=== PATIENT | male | born 1950 | race Two or more races ===

== ENCOUNTER 2022-11-26 11:22 | Inpatient (IN) | payer OTHER, MEDICAID ==
[~2022-11-26] VITALS: Ht 162.6 cm; Wt 57.1 kg
[2022-11-26] MEDS ORDERED: SODIUM CHLORIDE 0.9% 1,000 ML IV ONE (11:30)
[2022-11-26 11:54] LABS: Basophils # (auto) 0 10 ^3/uL (0-0.2); Basophils % (auto) 0.5 % (0.0-2.0); Eosinophils # (auto) 0.1 10 ^3/uL (0-0.8); Eosinophils % (auto) 2.1 % (0.0-7.0); Hematocrit 33.4 % (41.0-53.0); Hemoglobin 11.1 g/dL (13.5-17.5); Lymphocytes # (auto) 2.3 10 ^3/uL (0.4-5.4); Lymphocytes % (auto) 36.1 % (10.0-50.0); Mean Corpuscular Hemoglobin 29.8 pg (28.0-32.0); Mean Corpuscular Hgb Conc. 33.1 g/dL (32.0-36.0); Mean Corpuscular Volume 89.8 fL (80.0-100.0); Monocytes # (auto) 0.3 10 ^3/uL (0-1.3); Monocytes % (auto) 4.8 % (0.0-12.0); Neutrophils # (auto) 3.6 10 ^3/uL (1.6-8.6); Neutrophils % (auto) 56.5 % (37.0-80.0); Nucleated Red Blood Cells % 0.1 %; Red Blood Cells 3.72 10^6/uL (4.5-5.90); Red Cell Distribution Width 13.9 % (11.8-14.3); White Blood Cell 6.3 10^3/uL (4.4-10.8)
[2022-11-26 12:14] LABS: Albumin 3.5 g/dL (3.4-5.0); Calcium 8.3 mg/dL (8.5-10.1)
[2022-11-26 12:16] LABS: BUN/Creatinine Ratio 17.7 (10.0-20.0); Bilirubin, Total 0.4 mg/dL (0.2-1.0); Total Protein 5.8 g/dL (6.4-8.2)
[2022-11-26] MEDS ORDERED: MORPHINE SULFATE INJ 2 MG/ml SYRG IV PRN (14:45)
[2022-11-26] MEDS ORDERED: NITROGLYCERIN 0.4 MG SL TAB SL PRN (14:45)
[2022-11-26] MEDS ORDERED: NAP500T PO (16:01)
[2022-11-26] MEDS ORDERED: ATOR10TA52 PO (16:01)
[2022-11-26] MEDS ORDERED: BACL10TA PO (16:01)
[2022-11-26] MEDS ORDERED: FEXO-157 PO (16:01)
[2022-11-26] MEDS ORDERED: HYDR-3682 PO (16:01)
[2022-11-26] MEDS ORDERED: hydrOXYzine 25 MG TAB or CAP PO PRN (16:30)
[2022-11-26 16:53] LABS: Alcohol, Urine < 3.0 mg/dL (0-10); Barbiturate Scree,Urine NEGATIVE (NEGATIVE); Benzodiazephine Screen, Urine NEGATIVE (NEGATIVE); Cocaine Screen, Urine NEGATIVE (NEGATIVE); Opiate Scree,Urine NEGATIVE (NEGATIVE)
[2022-11-26 17:01] LABS: Amphetamine Screen, Urine NEGATIVE (NEGATIVE); Cannabinoid Screen, Urine POSITIVE (NEGATIVE); Phencyclidine Screen, Urine NEGATIVE (NEGATIVE)
[2022-11-26 17:04] LABS: Urine Bacteria NONE SEEN /hpf (None Seen); Urine Blood Negative /uL (Negative); Urine Clarity Clear (Clear); Urine Color Colorless (Yellow); Urine Protein, UAD Negative (Negative); Urine Urobilinogen Normal (Negative); Urine WBC 2 /hpf (0 - 3)
[2022-11-26] MEDS: NAPROXEN 500 MG TAB PO SCH (21:22)
[2022-11-26 22:10] VITALS: O2SAT 98
[2022-11-27] VITALS (7 sets, daily range): BP systolic 130–151; BP diastolic 65–79; PULSE 49–60; RESP 16–20; TEMP 97.8–99.2; O2SAT 99–100
[2022-11-27 07:06] LABS: Basophils # (auto) 0 10 ^3/uL (0-0.2); Basophils % (auto) 0.4 % (0.0-2.0); Eosinophils # (auto) 0.1 10 ^3/uL (0-0.8); Eosinophils % (auto) 1.9 % (0.0-7.0); Hematocrit 33.1 % (41.0-53.0); Hemoglobin 11.2 g/dL (13.5-17.5); Lymphocytes # (auto) 2.5 10 ^3/uL (0.4-5.4); Lymphocytes % (auto) 35.8 % (10.0-50.0); Mean Corpuscular Hemoglobin 30.4 pg (28.0-32.0); Mean Corpuscular Hgb Conc. 33.9 g/dL (32.0-36.0); Mean Corpuscular Volume 89.7 fL (80.0-100.0); Monocytes # (auto) 0.4 10 ^3/uL (0-1.3); Neutrophils # (auto) 3.8 10 ^3/uL (1.6-8.6); Neutrophils % (auto) 55.9 % (37.0-80.0); Red Blood Cells 3.69 10^6/uL (4.5-5.90); Red Cell Distribution Width 14.2 % (11.8-14.3); White Blood Cell 6.9 10^3/uL (4.4-10.8)
[2022-11-27 07:18] LABS: Albumin 3.6 g/dL (3.4-5.0); Calcium 8.6 mg/dL (8.5-10.1)
[2022-11-27 07:24] LABS: BUN/Creatinine Ratio 14.5 (10.0-20.0); Bilirubin, Total 0.5 mg/dL (0.2-1.0); Total Protein 5.9 g/dL (6.4-8.2)
[2022-11-27] MEDS ORDERED: LORazepam 2MG/ML-1ML VIAL IV PRN (08:30)
[2022-11-27] MEDS: BACLOFEN 10 MG TAB PO SCH (10:19)
[2022-11-27] MEDS: ATORVASTATIN 20 MG TAB PO SCH (10:20)
[2022-11-27] MEDS: FEXOFENADINE HCL 60 MG TAB PO SCH (10:20)
[2022-11-27] MEDS: NAPROXEN 500 MG TAB PO SCH ×2 (10:20→21:20)
[2022-11-27 12:16] LABS: Hepatitis A Ab IgM Negative; Hepatitis B Core IgM Negative
[2022-11-27 12:17] LABS: Hepatitis B Surface Antigen Negative (Negative); Hepatitis C Antibody Negative (Negative)
[2022-11-27] MEDS ORDERED: ASCO500T11 PO (17:46)
[2022-11-27] MEDS ORDERED: CHOL20007 PO (17:46)
[2022-11-28 05:00] VITALS: BP 132/71; PULSE 52; RESP 16; TEMP 97.6; O2SAT 100
[2022-11-28 06:01] LABS: Basophils # (auto) 0 10 ^3/uL (0-0.2); Basophils % (auto) 0.5 % (0.0-2.0); Eosinophils # (auto) 0.2 10 ^3/uL (0-0.8); Eosinophils % (auto) 2.2 % (0.0-7.0); Hematocrit 34.3 % (41.0-53.0); Hemoglobin 11.4 g/dL (13.5-17.5); Lymphocytes # (auto) 2.6 10 ^3/uL (0.4-5.4); Lymphocytes % (auto) 36.4 % (10.0-50.0); Mean Corpuscular Hemoglobin 29.9 pg (28.0-32.0); Mean Corpuscular Hgb Conc. 33.3 g/dL (32.0-36.0); Mean Corpuscular Volume 89.8 fL (80.0-100.0); Monocytes # (auto) 0.5 10 ^3/uL (0-1.3); Monocytes % (auto) 6.5 % (0.0-12.0); Neutrophils # (auto) 3.9 10 ^3/uL (1.6-8.6); Neutrophils % (auto) 54.4 % (37.0-80.0); Nucleated Red Blood Cells % 0.1 %; Red Blood Cells 3.81 10^6/uL (4.5-5.90); Red Cell Distribution Width 14.5 % (11.8-14.3); White Blood Cell 7.2 10^3/uL (4.4-10.8)
[2022-11-28 06:13] LABS: Potassium 4.2 mmol/L (3.5-5.1)
[2022-11-28 06:18] LABS: Albumin 3.7 g/dL (3.4-5.0); BUN/Creatinine Ratio 22.7 (10.0-20.0); Bilirubin, Total 0.4 mg/dL (0.2-1.0); Calcium 8.3 mg/dL (8.5-10.1)
[2022-11-28 08:00] VITALS: BP 148/68; PULSE 57; PULSE 61; RESP 16; TEMP 98.2; O2SAT 99
[2022-11-28 09:00] VITALS: BP 148/68; PULSE 61; RESP 16; TEMP 98.2; O2SAT 99
[2022-11-28] MEDS: ATORVASTATIN 20 MG TAB PO SCH (10:42)
[2022-11-28] MEDS: NAPROXEN 500 MG TAB PO SCH (10:42)
[2022-11-28] MEDS: BACLOFEN 10 MG TAB PO SCH (10:42)
[2022-11-28] MEDS: FEXOFENADINE HCL 60 MG TAB PO SCH (10:47)
== END 2022-11-28 12:55 | disposition home or self-care (01) | DRG 159 ==
LOC: ER 11:22 → EDBD 11:22 → EDUNIT# 11:22 → TELE 14:46 → TELE-WESTW 22:10
PROVIDERS: ADMIT Internal Medicine; ATTEND Student in an Organized Health Care Education/Training Program
PROC: 4A00X4Z Measurement of Central Nervous Electrical Activity, External Approach (ICD-10-PCS; principal; 2022-11-27)
DX: S02.40CA Maxillary fracture, right side, initial encounter for closed fracture (principal); S46.001A Unspecified injury of muscle(s) and tendon(s) of the rotator cuff of right shoulder, initial encounter; I49.8 Other specified cardiac arrhythmias; C61 Malignant neoplasm of prostate; J30.9 Allergic rhinitis, unspecified; E78.5 Hyperlipidemia, unspecified; R74.01 Elevation of levels of liver transaminase levels; M54.9 Dorsalgia, unspecified; G89.29 Other chronic pain; D64.9 Anemia, unspecified; R73.9 Hyperglycemia, unspecified; J43.9 Emphysema, unspecified; I51.7 Cardiomegaly; L29.9 Pruritus, unspecified; X58.XXXA Exposure to other specified factors, initial encounter; Y93.89 Activity, other specified; Z80.42 Family history of malignant neoplasm of prostate; Y92.89 Other specified places as the place of occurrence of the external cause; Y99.8 Other external cause status; R55 Syncope and collapse
CPT/HCPCS: 36415; 70450; 70551; 71045; 76705; 80053; 80061; 80074; 80307; 81001; 84443; 84484; 85025; 93005; 93306; 93886; 95819; 96360; G0378